=== PATIENT | female | born 1995 | race Caucasian/White ===

== ENCOUNTER 2017-06-14 11:43 | Emergency (ER) | payer BC ==
[2017-06-14 13:54] VITALS: BP 135/75
--- NOTE | 2017-06-14 13:59 | UC ---
Throat Pain/Nasal Chance HPI - HPI Summary HPI Summary: 22 year old with swollen lymph nodes. c/o of swollen glands on both sides of throat for the past 3 days, denies throat pain. She also states when she wakes up, her eyes are "puffy and crusty", no redness or itching to eyes and they are fine during the day. Also c/o bi lat ear fullness, no pain or drainage. No fever but felt warm. The eyes are crusty in the AM for a couple minutes and not after that . No redness in the afternoon. No contact lenses. no mouth or teeth tenderness. no exposure to mumps. UTD with vaccinations. No dysphagia. No n/v/d [ End ] - History of Current Complaint Chief Complaint: UCRespiratory Stated Complaint: SWOLLEN GLANDS,PUFFY EYES,FEVER Time Seen by Provider: 06/14/17 13:49 Hx Obtained From: Patient Hx Last Menstrual Period: 06/02/17 ?: No Onset/Duration: Gradual Onset Severity: Mild - Allergies/Home Medications Allergies/Adverse Reactions: Allergies Allergy/AdvReac Type Severity Reaction Status Date / Time No Known Allergies Allergy Verified 06/14/17 13:54 PMH/Surg Hx/FS Hx/Imm Hx Previously Healthy: Yes - Surgical History Surgical History: None - Family History Known Family History: Positive: None - Social History Occupation: Student - [employer] -- from [employer] Lives: Dormitory/Roommates Alcohol Use: Weekly Substance Use Type: None Smoking Status (MU): Never Smoked Tobacco Review of Systems Constitutional: Fatigue ENT: Ear Ache, Nasal Discharge, Sinus Congestion, Sinus Pain/Tenderness Respiratory: Negative Cardiovascular: Negative Gastrointestinal: Negative Genitourinary: Negative Motor: Negative Neurovascular: Negative Musculoskeletal: Negative Neurological: Negative Psychological: Negative All Other Systems Reviewed And Are Negative: Yes Physical Exam Triage Information Reviewed: Yes Appearance: Well-Appearing, No Pain Distress, Well-Nourished Vital Signs: Initial Vital Signs Temp 98 F 06/14/17 13:47 Pulse 85 06/14/17 13:47 Resp 14 06/14/17 13:47 BP 135/75 06/14/17 13:47 Pulse Ox 97 06/14/17 13:47 Vital Signs Reviewed: Yes Eye Exam: Normal ENT Exam: Normal ENT: Positive: Pharynx normal, TM dull. Negative: Pharyngeal erythema, Nasal congestion, Nasal drainage, TM bulging, TM red, Tonsillar swelling, Tonsillar exudate Dental Exam: Normal Neck exam: Normal Neck: Positive: 1 Respiratory Exam: Normal Cardiovascular Exam: Normal Abdominal Exam: Normal Musculoskeletal Exam: Normal Neurological Exam: Normal Psychological Exam: Normal Skin Exam: Normal Throat Pain/Nasal Course/Dx - Course Course Of Treatment: Pt states her mom is asking for an antibiotic. Discussed her Sx appear to be either viral or allergic. Neg strep. No bacterial source of infection. Neg Kernig/Brud. No acute concerns for mumps or acute lymphadenitis of concern. - Differential Dx/Diagnosis Differential Diagnosis/HQI/PQRI: Pharyngitis, Sinusitis, URI Provider Diagnoses: Viral URI Discharge - Discharge Plan Condition: Good Disposition: HOME Prescriptions: LevoCETirizine TAB (NF) [Xyzal TAB (NF)] 5 mg PO DAILY #14 tab Patient Education Materials: Upper Respiratory Infection (ED) Forms: *School Release Referrals: Non Staff,Doctor [Primary Care Provider] - If Needed Additional Instructions: Today your strep testing was negative. At this time it appears your symptoms represent a viral infection. If your symptoms worsen please seek medical care.
== END 2017-06-14 14:36 | disposition home or self-care (01) ==
LOC: UCCORT 11:43
DX: J06.9 Acute upper respiratory infection, unspecified (principal)
CPT/HCPCS: 87651; 99212; G0463

== ENCOUNTER 2018-05-16 19:50 | Emergency (ER) | payer BC ==
[2018-05-16 20:27] VITALS: BP 124/72
--- NOTE | 2018-05-16 21:00 | UC ---
Throat Pain/Nasal Chance HPI - HPI Summary HPI Summary: Pt c/o of worsening nasal congestion, fever, chills, generalized malaise, facial pressure and pain, GARCIA, X 6 days. - History of Current Complaint Chief Complaint: UCGeneralIllness Stated Complaint: SINUSES Time Seen by Provider: 05/16/18 20:55 Hx Obtained From: Patient Hx Last Menstrual Period: 2 wks ago ?: No Onset/Duration: Gradual Onset, Lasting Days, Still Present, Worse Since - onset Severity: Moderate Pain Intensity: 7 Associated Signs & Symptoms: Positive: Sinus Discomfort, Fever - Epiglottits Risk Factors Epiglottis Risk Factors: Negative - Allergies/Home Medications Allergies/Adverse Reactions: Allergies Allergy/AdvReac Type Severity Reaction Status Date / Time No Known Allergies Allergy Verified 05/16/18 20:20 Home Medications: Home Medications Ibuprofen TAB* [Advil TAB*] 400 mg PO Q6H PRN 05/16/18 [History Confirmed ] PMH/Surg Hx/FS Hx/Imm Hx Previously Healthy: Yes - Surgical History Surgical History: None - Family History Known Family History: Positive: Cardiac Disease - Social History Occupation: Student Lives: Dormitory/Roommates Alcohol Use: Weekly Substance Use Type: None Smoking Status (MU): Never Smoked Tobacco Have You Smoked in the Last Year: No - Immunization History Vaccination Up to Date: Yes Review of Systems Constitutional: Chills, Fatigue Skin: Negative Eyes: Negative ENT: Sinus Congestion, Sinus Pain/Tenderness Respiratory: Negative Cardiovascular: Negative Gastrointestinal: Negative Genitourinary: Negative Motor: Negative Neurovascular: Negative Musculoskeletal: Myalgia Neurological: Headache Psychological: Negative Is Patient Immunocompromised?: No All Other Systems Reviewed And Are Negative: Yes Physical Exam Triage Information Reviewed: Yes Appearance: Ill-Appearing Vital Signs: Initial Vital Signs Temp 98.1 F 05/16/18 20:22 Pulse 87 05/16/18 20:22 Resp 18 05/16/18 20:22 BP 124/72 05/16/18 20:22 Pulse Ox 100 05/16/18 20:22 Vital Signs Reviewed: Yes Eye Exam: Normal ENT Exam: Other ENT: Positive: Nasal congestion, TM bulging - bilateral, Sinus tenderness Dental Exam: Normal Neck exam: Normal Respiratory Exam: Normal Cardiovascular Exam: Normal Musculoskeletal Exam: Normal Neurological Exam: Normal Psychological Exam: Normal Skin Exam: Normal Throat Pain/Nasal Course/Dx - Differential Dx/Diagnosis Differential Diagnosis/HQI/PQRI: Sinusitis, URI Provider Diagnoses: sinusitis Discharge - Sign-Out/Discharge Documenting (check all that apply): Patient Departure All imaging exams completed and their final reports reviewed: No Studies - Discharge Plan Condition: Stable Disposition: HOME Prescriptions: Amoxicillin PO (*) [Amoxicillin 875 MG (*)] 875 mg PO Q12H #20 tab Guaifenesin/Pseudoephedrne HCl [Mucinex D ER 600-60 mg Tablet] 1 each PO Q12H # 14 tab.er.12h Patient Education Materials: Sinusitis (ED) Referrals: [facility] [Outside] - If Needed No Primary Care Phys,NOPCP [Primary Care Provider] - - Billing Disposition and Condition Condition: STABLE Disposition: Home
[2018-05-16] MEDS ORDERED: Amoxicillin PO (*) 500 MG CAP PO ONE (21:02)
== END 2018-05-16 21:09 | disposition home or self-care (01) ==
LOC: UCCORT 19:50
DX: J32.9 Chronic sinusitis, unspecified (principal)
CPT/HCPCS: 99212; A9270-GY; G0463